=== PATIENT | female | born 1985 | race Caucasian/White ===

== ENCOUNTER 2020-12-16 15:30 | Outpatient (CLI) | payer SELFPAY | END 2020-12-16 23:59 | disposition home or self-care (01) | LOC: LAB.N 15:30 | PROVIDERS: ATTEND Family Medicine | DX: R07.0 Pain in throat (principal); Z20.822 Contact with and (suspected) exposure to COVID-19 | CPT/HCPCS: 87070 ==

== ENCOUNTER 2021-07-06 17:45 | Emergency (ER) | payer SELFPAY ==
[2021-07-06] MEDS ORDERED: SODIUM CHLORIDE 0.9% 1,000 ML IV STA ×2 (18:02→19:20)
[2021-07-06] MEDS ORDERED: KETOROLAC 15 MG/ML VIAL IVP STA (18:02)
--- NOTE | 2021-07-06 18:03 | ED Physician Documentation ---
PD HPI ABD PAIN - Stated complaint Stated Complaint: ABD PAIN, NAUSEA - Chief complaint Chief Complaint: Abd Pain - History obtained from History obtained from: Patient - Additional information Additional information: Previously healthy 35-year-old woman with no past medical history and no past abdominal surgical history. She got back from [facility] 10 days ago. She became sick yesterday with abdominal cramping with significant pain, vomiting and diarrhea. She denies fevers or chills. No sick contacts. She took a home COVID and malaria tests which were negative. Review of Systems Constitutional: denies: Fever, Chills Cardiac: denies: Chest pain / pressure, Palpitations Respiratory: denies: Dyspnea, Cough GI: reports: Abdominal Pain, Nausea, Vomiting, Diarrhea PD PAST MEDICAL HISTORY - Allergies Allergies/Adverse Reactions: Allergies Allergy/AdvReac Type Severity Reaction Status Date / Time No Known Drug Allergies Allergy Verified 07/06/21 17:49 PD ED PE NORMAL - Vitals Vital signs reviewed: Yes - General General: Alert and oriented X 3, No acute distress - HEENT HEENT: PERRL, EOMI - Neck Neck: Supple, no meningeal sign, No bony TTP - Cardiac Cardiac: RRR, No murmur - Respiratory Respiratory: No respiratory distress, Clear bilaterally - Abdomen Abdomen: Other (Mild diffuse tenderness that does not seem to localize. Hyperactive bowel tones. No surgical signs.) - Back Back: No CVA TTP, No spinal TTP - Derm Derm: Normal color, Warm and dry - Extremities Extremities: No edema, No calf tenderness / cord - Neuro Neuro: Alert and oriented X 3, Normal speech Results - Vitals Vitals: Vital Signs - 24 hr 07/06/21 07/06/21 17:49 18:40 Temperature 36.5 C 37.0 C Heart Rate 100 90 Respiratory 16 16 Rate Blood Pressure 112/60 115/76 O2 Saturation 98 99 Oxygen O2 Source Room air - Labs Labs: Laboratory Tests 07/06/21 07/06/21 07/06/21 18:00 18:30 18:30 WBC 9.0 RBC 4.87 Hgb 14.6 Hct 42.4 MCV 87.1 MCH 30.0 MCHC 34.4 RDW 11.7 L Plt Count 187 MPV 9.8 Neut # (Auto) 7.7 H Lymph # (Auto) 0.5 L [place] # (Auto) 0.6 Eos # (Auto) 0.1 Baso # (Auto) 0.0 Absolute Nucleated RBC 0.00 Nucleated RBC % 0.0 Sodium 133 L Potassium 3.6 Chloride 99 L Carbon Dioxide 25 Anion Gap 9.0 BUN 11 Creatinine 0.7 Estimated GFR (MDRD) 96 Glucose 108 H Calcium 8.7 Total Bilirubin 0.9 AST 16 ALT 12 Alkaline Phosphatase 44 Total Protein 7.4 Albumin 4.3 Globulin 3.1 Albumin/Globulin Ratio 1.4 Lipase 34 Urine Color YELLOW Urine Clarity CLEAR Urine pH 5.5 Ur Specific [place] >=1.030 H Urine Protein NEGATIVE Urine Glucose (UA) NEGATIVE Urine Ketones >=80 H Urine Occult Blood NEGATIVE Urine Nitrite NEGATIVE Urine Bilirubin NEGATIVE Urine Urobilinogen 0.2 (NORMAL) Ur Leukocyte Esterase NEGATIVE Ur Microscopic Review NOT INDICATED Urine Culture Comments NOT INDICATED Urine HCG, Qual NEGATIVE PD MEDICAL DECISION MAKING - ED course ED course: 35-year-old woman with a syndrome most consistent with gastroenteritis. Lab work is unremarkable with the exception of findings of dehydration. She was feeling better after IV fluids here noting that she had already gotten ondansetron at the walk-in clinic prior to arrival. She remained nontender on reevaluation at approximately 6:50 PM and again around 7:20 PM prior to discharge. Passed p.o. challenge. Departure - Departure Disposition: 01 Home, Self Care Clinical Impression: Vomiting Qualifiers: Vomiting type: unspecified Nausea presence: with nausea Qualified Code(s): R11 .2 - Nausea with vomiting, unspecified Diarrhea Qualifiers: Diarrhea type: presumed infectious Qualified Code(s): R19.7 - Diarrhea, unspecified Abdominal pain Qualifiers: Abdominal location: generalized Qualified Code(s): R10.84 - Generalized abd ominal pain Condition: Good Record reviewed to determine appropriate education?: Yes Instructions: ED Nausea Vomiting Comments: As discussed, it does not seem like anything serious is going on, that said I would like you to return in 12 to 18 hours if not improving, anytime if worsening.
[2021-07-06 18:11] LABS: BILIRUBIN,URINE NEGATIVE (NEGATIVE); GLUCOSE, URINE (UA) NEGATIVE (NEGATIVE); KETONES,URINE (UA) >=80 mg/dL (NEGATIVE); LEUKOCYTE ESTERASE, URINE NEGATIVE (NEGATIVE); NITRITE,URINE NEGATIVE (NEGATIVE); OCCULT BLOOD,URINE NEGATIVE (NEGATIVE); PH,URINE 5.5 PH (5.0-7.5); PROTEIN,URINE NEGATIVE (NEGATIVE); UROBILINOGEN,URINE 0.2 (NORMAL) E.U./dL (NORMAL)
[2021-07-06 18:12] LABS: CLARITY,URINE CLEAR (CLEAR); HCG UR QUAL NEGATIVE
[2021-07-06 18:35] LABS: BASOPHILS % (AUTO) 0.3 %; EOSINOPHILS # (AUTO) 0.1 10^3/uL (0.0-0.7); EOSINOPHILS % (AUTO) 0.7 %; HCT - HEMATOCRIT 42.4 % (37.0-47.0); HGB - HEMOGLOBIN 14.6 g/dL (12.0-16.0); LYMPHOCYTES # (AUTO) 0.5 10^3/uL (1.5-3.5); LYMPHOCYTES % (AUTO) 5.8 %; MEAN CORPUSCULAR HGB CONC 34.4 g/dL (32.0-36.0); MEAN CORPUSCULAR VOLUME 87.1 fL (81.0-99.0); MEAN PLATELET VOLUME 9.8 fL (7.9-10.8); MONOCYTES # (AUTO) 0.6 10^3/uL (0.0-1.0); MONOCYTES % (AUTO) 7.1 %; NEUTROPHILS # (AUTO) 7.7 10^3/uL (1.5-6.6); NEUTROPHILS % (AUTO) 85.9 %; PLT - PLATELET COUNT 187 10^3/uL (130-450); RED BLOOD COUNT 4.87 10^6/uL (4.20-5.40); RED CELL DISTRIBUTION WIDTH 11.7 % (12.0-15.0)
[2021-07-06 18:49] LABS: ALBUMIN 4.3 g/dL (3.2-5.5); ALBUMIN/GLOBULIN RATIO 1.4 (1.0-2.2); BILIRUBIN,TOTAL 0.9 mg/dL (0.2-1.0); CALCIUM 8.7 mg/dL (8.5-10.3); CREATININE 0.7 mg/dL (0.4-1.0); POTASSIUM 3.6 mmol/L (3.5-5.0); TOTAL PROTEIN 7.4 g/dL (6.7-8.2)
[2021-07-06] MEDS ORDERED: ONDANSETRON ODT 4 MG Prepack 2 TL STA (19:19)
[2021-07-06] MEDS ORDERED: DICYCLOMINE 10 MG CAPSULE PO STA (19:56)
[2021-07-06 20:16] VITALS: BP 114/76
== END 2021-07-06 20:16 | disposition home or self-care (01) ==
LOC: ED 17:45
DX: R10.84 Generalized abdominal pain (principal); R19.7 Diarrhea, unspecified; R11.2 Nausea with vomiting, unspecified
CPT/HCPCS: 36415; 80053; 81003; 81025; 83690; 85025; 96361; 96374; 99282; 99284; A9270; 81001; 87086

== ENCOUNTER 2022-09-07 01:47 | Emergency (ER) | payer OTHER ==
--- NOTE | 2022-09-07 02:03 | ED Physician Documentation ---
PD HPI ABD PAIN - Stated complaint Stated Complaint: ABD PX/BACK PX - Chief complaint Chief Complaint: Abd Pain - History obtained from History obtained from: Patient - Additional information Additional information: Patient c/o left flank pain , rapid onset approximately 10 PM tonight while at home at rest, associated with nausea and vomiting when the pain is most intense. The pain waxes and wanes without exacerbating factors. Patient felt some relief was associated with an episode of emesis, but otherwise has not noticed any ameliorating factors. The pain radiates from the left flank around to LLQ. Had one similar previous episode approximately 1-2 weeks ago which was brief and self-limited, thus did not seek medical attention. Review of Systems Constitutional: denies: Fever GI: reports: Nausea, Vomiting. denies: Constipation, Diarrhea : denies: Dysuria, Frequency, Hematuria, Now EGA Musculoskeletal: reports: Back pain PD PAST MEDICAL HISTORY - Past Medical History Past Medical History: No - Present Medications Home Medications: Ambulatory Orders Medication Instructions Recorded Confirmed Ondansetron Odt [Zofran] 4 mg TL Q6H PRN #14 tablet 09/07/22 Oxycodone HCl/Acetaminophen 1 - 2 each PO Q6HR PRN #20 tab 09/07/22 [Oxycodone-Acetaminophen 5-325] Tamsulosin [Flomax] 0.4 mg PO DAILY #7 cap 09/07/22 - Allergies Allergies/Adverse Reactions: Allergies Allergy/AdvReac Type Severity Reaction Status Date / Time No Known Drug Allergies Allergy Verified 09/07/22 01:55 - Living Situation Living Situation: reports: With spouse/s.o. Living Arrangement: reports: At home PD ED PE NORMAL - Vitals Vital signs reviewed: Yes - General General: Alert and oriented X 3, Well developed/nourished, Other (obvious mod erate-severe painful distress, waxing and waning during H+P) - HEENT HEENT: Moist mucous membranes - Cardiac Cardiac: RRR, No murmur - Respiratory Respiratory: No respiratory distress, Clear bilaterally - Abdomen Abdomen: Soft, Non tender, Non distended - Back Back: No CVA TTP - Derm Derm: Normal color, Warm and dry Results - Vitals Vitals: Oxygen O2 Source Room air Oxygen Flow Rate 2 - Labs Labs: Laboratory Tests 09/07/22 09/07/22 09/07/22 02:04 02:04 02:33 WBC 11.8 H RBC 4.17 L Hgb 12.3 Hct 37.1 MCV 89.0 MCH 29.5 MCHC 33.2 RDW 11.9 L Plt Count 258 MPV 9.8 Neut # (Auto) 8.4 H Lymph # (Auto) 2.4 [place] # (Auto) 0.8 Eos # (Auto) 0.1 Baso # (Auto) 0.1 Absolute Nucleated RBC 0.00 Nucleated RBC % 0.0 Sodium 136 Potassium 3.6 Chloride 98 L Carbon Dioxide 26 Anion Gap 12.0 BUN 15 Creatinine 0.7 Estimated GFR (MDRD) 95 Glucose 137 H Calcium 9.1 Total Bilirubin 0.5 AST 127 H ALT 108 H Alkaline Phosphatase 63 Total Protein 7.5 Albumin 4.8 Globulin 2.7 Albumin/Globulin Ratio 1.8 Lipase 45 Urine Color YELLOW Urine Clarity CLEAR Urine pH 6.0 Ur Specific [place] >=1.030 H Urine Protein TRACE Urine Glucose (UA) NEGATIVE Urine Ketones NEGATIVE Urine Occult Blood LARGE H Urine Nitrite NEGATIVE Urine Bilirubin NEGATIVE Urine Urobilinogen 1 (NORMAL) Ur Leukocyte Esterase NEGATIVE Urine RBC 6-10 H Urine WBC 0-3 Ur Squamous Epith Cells MOD Squamous H Urine Bacteria Rare Ur Microscopic Review INDICATED Urine Culture Comments NOT INDICATED Urine HCG, Qual 09/07/22 02:33 WBC RBC Hgb Hct MCV MCH MCHC RDW Plt Count MPV Neut # (Auto) Lymph # (Auto) [place] # (Auto) Eos # (Auto) Baso # (Auto) Absolute Nucleated RBC Nucleated RBC % Sodium Potassium Chloride Carbon Dioxide Anion Gap BUN Creatinine Estimated GFR (MDRD) Glucose Calcium Total Bilirubin AST ALT Alkaline Phosphatase Total Protein Albumin Globulin Albumin/Globulin Ratio Lipase Urine Color Urine Clarity Urine pH Ur Specific [place] Urine Protein Urine Glucose (UA) Urine Ketones Urine Occult Blood Urine Nitrite Urine Bilirubin Urine Urobilinogen Ur Leukocyte Esterase Urine RBC Urine WBC Ur Squamous Epith Cells Urine Bacteria Ur Microscopic Review Urine Culture Comments Urine HCG, Qual NEGATIVE - Rads (name of study) CT A/P without contrast Relevant Findings:: Prelim report reviewed, EMP independent interpretation of test (I reviewed these images and my interpretation is mild/moderate left hydroureter, 2 x 3 mm calculus left UVJ. no other calculi visualized ), See rad report PD Medical Decision Making - ED course Complexity details: reviewed results, re-evaluated patient, considered differential, d/w patient ED course: hematuria on UA (macro and micro) without other abnormalities; no indication on UA of UTI. Minimal leukocytosis on CBC. No concerning findings on ER abdominal panel; incidental note of mildly elevated AST and ALT. CT demonstrates left UVJ calculus, appears to measure 2 mm x 3 mm on my interpretation (including on-screen measurements using "ruler" measurement tool); radiologist's interpretation notes same findings except they measure the calculus at 1.6mm. Results/diagnosis/prognosis are all d/w patient. Patient had mild improvement with 1mg IV dilaudid, subsequently given 0.5 mg IV dilaudid for ongoing pain. The second dose was lower due to patient reporting feeling more nauseas and unpleasant "woozy" (per patient) side effect. She had further, though mild, improvement in pain with the second dose of dilaudid. She was then given IV lidocaine (kidney stone dosing/protocol), and on reevaluation after the lidocaine, she is in NAD and reports resolution of the pain. Nausea improved with IV zofran. She had nausea prior to discharge but no pain, and this is likely due to side effect of the pain medications given rather than secondary to the renal colic itself. She was able to take one of the take-home TL zofran prior to leaving ED. Return precautions reviewed. She is provided a strainer with instructions on how to use it and to save any stone she might pass (and to contact PMD regarding whether they would order stone analysis). She is given take-home packs of ondansetron and percocet, with prescriptions for both of these medications e- prescribed to her pharmacy of choice. She is also given 0.4mg tamsulosin in ED and rx provided as well. Departure - Departure Disposition: Home, Self Care Clinical Impression: Renal colic Condition: Good Instructions: ED Stone Renal W Colic Prescriptions: Oxycodone HCl/Acetaminophen [Oxycodone-Acetaminophen 5-325] 1 - 2 each PO Q6HR PRN #20 tab PRN Reason: Pain >8 Tamsulosin [Flomax] 0.4 mg PO DAILY #7 cap Ondansetron Odt [Zofran] 4 mg TL Q6H PRN #14 tablet PRN Reason: Nausea / Vomiting Comments: The CT scan shows a 1.6 mm stone in the left ureter. The ureter is the conduit from the kidney to the bladder; the pain of kidney stones is only felt when a stone get stuck in the ureter. Once the stone gets into your bladder, the pain will resolve and it will pass the next time you urinate (you will not feel the stone pass out of the bladder). Prescriptions for Percocet (narcotic/opiate pain medication), ondansetron (antinausea medication), and tamsulosin (medication that increases the likelihood of passing the stone and decreases the time until the stone passes) have all been electronically submitted to the [facility] pharmacy in [place]. You should strain your urine until the stone passes. Stones vary in color from white to dark vivas. If you passed the stone, you should keep it in a container until you speak to your primary care provider; some primary care providers will send the stone to lab for analysis, but this might not be necessary, particularly for the first kidney stone with a CAT scan that does not show evidence of any other stones in the kidneys. I am prescribing a short course of narcotic pain medication for you. These are potentially dangerous and addictive medications that should be used carefully. These medications may constipate you. Take an [id number] stool softener (docusate) twice daily with plenty of water while taking these medications. If you go 24 hours without a bowel movement, take [id number] miralax, per package instructions. Do not drink or drive while taking these medications. If you received narcotic or sedating medications while in the emergency department, do not drive for 24 hours. Store this medication in a safe, secure place and out of reach of children. It is a violation of federal law to give or sell this medication to another person or to use in a manner other than prescribed. The ED will not refill narcotic prescriptions, including prescriptions lost or stolen. To dispose of unwanted medications: 1. [facility] [address] in [place] has a medication drop box. They accept prescription medications (in pill form) Tuesday through Tuesday 9:00 a.m. to 5:00 p.m. 2. [facility] [employer] [facility] accepts prescription medications (in pill form only) for disposal year round. Call for more information. 3. Contact the [facility] for the next [facility] sponsored prescription drug collection event. , [phone], or [phone]; Discharge Date/Time: 09/07/22 05:33
[2022-09-07 02:09] LABS: BASOPHILS # (AUTO) 0.1 10^3/uL (0.0-0.1); BASOPHILS % (AUTO) 0.4 %; EOSINOPHILS # (AUTO) 0.1 10^3/uL (0.0-0.7); EOSINOPHILS % (AUTO) 0.8 %; HCT - HEMATOCRIT 37.1 % (37.0-47.0); HGB - HEMOGLOBIN 12.3 g/dL (12.0-16.0); LYMPHOCYTES # (AUTO) 2.4 10^3/uL (1.5-3.5); LYMPHOCYTES % (AUTO) 20.3 %; MEAN CORPUSCULAR HEMOGLOBIN 29.5 pg (27.0-31.0); MEAN CORPUSCULAR HGB CONC 33.2 g/dL (32.0-36.0); MEAN PLATELET VOLUME 9.8 fL (7.9-10.8); MONOCYTES # (AUTO) 0.8 10^3/uL (0.0-1.0); MONOCYTES % (AUTO) 6.5 %; NEUTROPHILS # (AUTO) 8.4 10^3/uL (1.5-6.6); NEUTROPHILS % (AUTO) 71.7 %; PLT - PLATELET COUNT 258 10^3/uL (130-450); RED BLOOD COUNT 4.17 10^6/uL (4.20-5.40); RED CELL DISTRIBUTION WIDTH 11.9 % (12.0-15.0); WHITE BLOOD COUNT 11.8 x10^3/uL (4.8-10.8)
[2022-09-07] MEDS ORDERED: HYDROmorphone 1 MG/ML CARPUJECT IVP STA ×2 (02:20→02:51)
[2022-09-07] MEDS ORDERED: KETOROLAC 30 MG/ML VIAL IVP STA (02:20)
[2022-09-07] MEDS ORDERED: SODIUM CHLORIDE 0.9% 1,000 ML IV STA (02:20)
[2022-09-07 02:21] LABS: ALBUMIN 4.8 g/dL (3.2-5.5); ALBUMIN/GLOBULIN RATIO 1.8 (1.0-2.2); BILIRUBIN,TOTAL 0.5 mg/dL (0.2-1.0); CALCIUM 9.1 mg/dL (8.5-10.3); CREATININE 0.7 mg/dL (0.4-1.0); POTASSIUM 3.6 mmol/L (3.5-5.0); TOTAL PROTEIN 7.5 g/dL (6.7-8.2)
[2022-09-07] MEDS ORDERED: ONDANSETRON 4 MG/2 ML VIAL IVP STA (02:21)
[2022-09-07 02:42] LABS: CLARITY,URINE CLEAR (CLEAR); GLUCOSE, URINE (UA) NEGATIVE (NEGATIVE); KETONES,URINE (UA) NEGATIVE (NEGATIVE); LEUKOCYTE ESTERASE, URINE NEGATIVE (NEGATIVE); NITRITE,URINE NEGATIVE (NEGATIVE); OCCULT BLOOD,URINE LARGE (NEGATIVE); PROTEIN,URINE TRACE mg/dL (NEGATIVE); UROBILINOGEN,URINE 1 (NORMAL) E.U./dL (NORMAL)
[2022-09-07 02:47] LABS: BILIRUBIN,URINE NEGATIVE (NEGATIVE); HCG UR QUAL NEGATIVE; ICTOTEST,URINE NEGATIVE
[2022-09-07 02:54] LABS: BACTERIA,URINE Rare /HPF (None Seen); SQUAMOUS EPITHELIAL CELL,UR MOD Squamous (<= Few); WBC,URINE 0-3 /HPF (0-5)
[2022-09-07] MEDS ORDERED: LIDOCAINE-MPF 2% 5 ML in SODIUM CHLORIDE 0.9% 50 ML IV STA (02:55)
[2022-09-07] MEDS ORDERED: LIDOCAINE-MPF 2% 5 ML VIAL ONE (03:33)
[2022-09-07] MEDS ORDERED: TAMSULOSIN 0.4 MG CAPSULE PO STA (04:37)
[2022-09-07] MEDS ORDERED: oxyCODONE/ACET 5/325 Prepack 4 PO STA (04:37)
[2022-09-07] MEDS ORDERED: ONDANSETRON ODT 4 MG Prepack 2 TL PRN (04:37)
[2022-09-07 04:49] VITALS: BP 119/77
--- NOTE | 2022-09-07 10:50 | CT Report ---
PROCEDURE: ABDOMEN/PELVIS WO INDICATIONS: left flank pain TECHNIQUE: Noncontrast 5 mm thick sections acquired from the diaphragms to the symphysis. 5 mm coronal and sagi ttal reformats were then performed. For radiation dose reduction, the following was used: automated exposure control, adjustment of mA and/or kV according to patient size. COMPARISON: None. FINDINGS: Image quality: Excellent. Kidneys and ureters: There is a 2 mm stone at the left UVJ causing mild left hydronephrosis and hydro ureter. No other left renal calculi are identified. There is increased attenuation in right renal med mony. No obstructive stones in right kidney. Bladder: Bladder is contracted. No calcified bladder stones. No filling defect within the opacified b ladder. OTHER: Lung bases and heart: Unremarkable. Liver: No solid mass. Gallbladder and biliary tree: Normal gallbladder. No gallstones. No biliary dilation. Spleen: No splenomegaly. Pancreas: No pancreatic ductal dilation. Adrenals: No adrenal nodule. Bowel and peritoneum: No bowel distension. No pathologic free fluid. There is a large amount stool in colon. Lymph nodes: No central or retroperitoneal adenopathy. Vessels: No infrarenal aortic aneurysm. Reproductive organs: Uterus and ovaries are unremarkable. There is a small amount of free fluid in th e cul-de-sac.. Pelvic lymph nodes: No adenopathy by size criteria. Bones: No aggressive osseous abnormality. Moderate scoliosis. Other: No significant ventral or inguinal hernia. IMPRESSION: 1. A 2 mm obstructive stone at the left UVJ causing mild left hydronephrosis and hydroureter. 2. A small amount of free fluid in the cul-de-sac is present, which may be physiological. No significant discrepancy with the preliminary interpretation. Reviewed by: Rc Mendes MD on 09/07/2022 10:49 AM PDT Approved by: Rc Mendes MD on 09/07/2022 10:49 AM PDT Station ID: [id number]
== END 2022-09-07 05:33 | disposition home or self-care (01) ==
LOC: ED 01:47
DX: N13.2 Hydronephrosis with renal and ureteral calculous obstruction (principal); R31.29 Other microscopic hematuria; R11.0 Nausea
CPT/HCPCS: 36415; 74176; 80053; 81001; 81025; 83690; 85025; 96365; 96375; 99285; A9270; J1170; J7040; 81003; 87086

== ENCOUNTER 2022-12-20 17:15 | Outpatient (CLI) | payer SELFPAY ==
[2022-12-20 23:07] LABS: BACTERIAL VAGINOSIS DNA POSITIVE (NEGATIVE); CANDIDA GLABRATA DNA NEGATIVE (NEGATIVE); CANDIDA GROUP DNA NEGATIVE (NEGATIVE); CANDIDA KRUSEI DNA NEGATIVE (NEGATIVE); TRICHOMONAS VAGINALIS DNA NEGATIVE (NEGATIVE)
== END 2022-12-20 17:30 | disposition home or self-care (01) ==
LOC: LAB.N 17:15
PROVIDERS: ATTEND Family Medicine
DX: N76.0 Acute vaginitis (principal)
CPT/HCPCS: 81514